=== PATIENT | female | born 1975 | race Caucasian/White ===

== ENCOUNTER → 2018-06-29 | Outpatient (CLI) | payer MEDICAID ==
[~2018-06-29] MED LIST: AMIT25TA PO; ARIP20TA5 PO; CALC-112 PO; ESCI20TA10 PO; ESOM20CA PO; ESTR0.9T PO; FIBER TABS PO; GABA100C PO; GLUC-121 PO; LAMO200T3 PO; LEVO1CAP PO; LEVO50TA5 PO; LOSA25TA6 PO; MULT-308 PO; OMEG1CAP6 PO; SUMA100T4 PO; TOPI25TA32 PO; VITA1CAP5 PO; VITAMIN B6 PO
[2018-06-29 10:33] LABS: ALANINE AMINOTRANSFERASE 32 U/L (12-78); ALBUMIN 3.6 g/dL (3.4-5.0); ANION GAP 8 mmol/L (5-15); CALCIUM 8.9 mg/dL (8.5-10.1); CHLORIDE 110 mmol/L (98-107); CREATININE 0.76 mg/dL (0.55-1.02)
[2018-06-29 10:36] LABS: ALKALINE PHOSPHATASE 114 U/L (45-117); BILIRUBIN,TOTAL 0.3 mg/dL (0.2-1.0)
== END | disposition home or self-care (01) ==
LOC: STAR 09:23
PROVIDERS: ATTEND Specialist
DX: Z01.818 Encounter for other preprocedural examination (principal); J34.9 Unspecified disorder of nose and nasal sinuses; J34.2 Deviated nasal septum; R04.0 Epistaxis; Z88.1 Allergy status to other antibiotic agents
CPT/HCPCS: 36415; 80053